=== PATIENT | female | born 1985 | race Caucasian/White ===

== ENCOUNTER 2025-07-14 12:26 | Day surgery (SDC) | payer MEDICAID ==
[~2025-07-14] VITALS: Ht 167.6 cm; Wt 67.1 kg
[2025-07-14] VITALS (8 sets, daily range): BP systolic 105–122; BP diastolic 57–80; PULSE 65–86; RESP 12–17; O2SAT 94–100
[2025-07-14] MEDS: ceFAZolin 2gm/dext,iso 50mL 50 ML IV ONE (05:30)
[~2025-07-14 12:26] MED LIST: APRE30TA5 PO; BUPR1FIL20 SL; DIPH25CA83 PO; FAMO20TA10 PO; FOLI1TAB27 PO; LEVO500C3 PO; LEVO75TA7 PO; PREN1TAB23 PO
[2025-07-14] MEDS: ringers solution, lacted 1,000 ML IV SCH (14:04)
[2025-07-14] MEDS: INDOCYANINE GREEN 25 MG/10 ML VIAL IV ONE (14:05)
[2025-07-14 14:32] LABS: MEAN PLATELET VOLUME 10.1 FL (7.4-10.4); PRE OP HEMATOCRIT 46.8 % (35.0-45.0); PRE OP HEMOGLOBIN 16.2 g/dL (12.0-16.0); PRE OP PLATELET COUNT 108 X10'3 (140-440); PRE OP WHITE BLOOD COUNT 6.0 10'3 (4.8-10.8); RED CELL DISTRIBUTION WIDTH 14.4 % (11.5-14.5)
[2025-07-14 14:44] LABS: HCG SERUM QL NEGATIVE
[2025-07-14 14:46] LABS: CREATININE 0.63 MG/DL (0.40-0.90); PRE OP ANION GAP 8 (8-16); PRE OP GLUCOSE 113 MG/DL (70-104); PRE OP SODIUM 141 MMOL/L (135-145); TOTAL CARBON DIOXIDE 27.3 MMOL/L (24-32); eCRCL 109 ML/MIN; eGFR > 90 ML/MIN
[2025-07-14 15:21] LABS: PRE OP POTASSIUM 4.8 MMOL/L (3.4-5.1)
[2025-07-14 15:22] LABS: PRE OP ALT 80 U/L (30-65); PRE OP AST 155 U/L (10-37)
[2025-07-14 15:23] LABS: PRE OP BILIRUB, TOTAL 2.8 MG/DL (0.0-1.0)
[2025-07-14] MEDS ORDERED: labetalol 20mg/4ml (5mg/ml) syringe IV PRN (15:25)
[2025-07-14] MEDS ORDERED: hydrALAZINE 20mg/ml inj. IV PRN (15:25)
[2025-07-14] MEDS ORDERED: fentaNYL/PF 50MCG/1 ML 2ML syringe IV PRN ×2 (15:25)
[2025-07-14] MEDS ORDERED: morphine 4 MG/ML inj SYRINge IV PRN (15:25)
[2025-07-14] MEDS ORDERED: ondansetron/PF 4mg/2ml inj IV PRN (15:25)
[2025-07-14] MEDS ORDERED: ringers solution, lacted 1,000 ML IV SCH (15:25)
[2025-07-14] MEDS ORDERED: BUPIVAcaine 2.5mg/ml inj 50ml vial (contains preservative) ONE (16:11)
[2025-07-14] MEDS ORDERED: LIDOcaine 1% (10mg/ml)w/preservative inj. 20ml MDV ONE (16:12)
[2025-07-14] MEDS: midazolam 1 mg/ML 2ml injection IV PRN (16:28)
[2025-07-14] MEDS ORDERED: rocuronium 10mg/ml inj IV ONE (16:31)
[2025-07-14] MEDS ORDERED: propofol inj 20 ML IV ONE (16:31)
[2025-07-14] MEDS ORDERED: LIDOcaine 2% (20mg/ml) 5ml vial ONE (16:31)
[2025-07-14] MEDS ORDERED: ondansetron/PF 4mg/2ml inj ONE (16:31)
[2025-07-14] MEDS ORDERED: morphine 10mg/ml inj. ONE ×2 (16:32→17:04)
[2025-07-14] MEDS ORDERED: dexamethasone 4mg/ml inj ONE (16:35)
[2025-07-14] MEDS ORDERED: dexmedetomidine 200mcg/2ml inj. IV ONE (16:35)
[2025-07-14] MEDS ORDERED: oxyCODONE/APAP 5-325mg tablet PO PRN (18:00)
--- NOTE | 2025-07-14 18:07 | OPERATIVE REPORT ---
Operative Report Providers to CC CC: BAYRON DUFFY MD ~ Date of Procedure: Jul 14, 2025 Pre-Operative Diagnosis: Symptomatic cholelithiasis Post-Operative Diagnosis SAME as PRE-Op Procedure Performed Robotic assisted, laparoscopic cholecystectomy Surgeon: Bayron Duffy MD FACS Classified Copy Control Clerk None Anesthesiologist: Amanuel Curry Type of Anesthesia: General Findings: Fatty liver with liver enlargement Distended gallbladder Clear visualization of cystic duct and critical view of safety confirmed using fluorescent cholangiography Wound class II Complications None Prosthetics\Implants used: None Estimated Blood Loss: 20 cc Specimen Removed: Gallbladder Description of Procedure: Patient was brought to the operating room and identified by the nursing staff and the attending physician. Patient was placed supine and general anesthesia was induced. A supraumbilical, midline incision was made, long enough to accommodate a 12 mm Jordan port. Jordan technique was used to gain entry into the abdomen. Stay sutures were placed in the Jordan port anchored to the fascia. Abdomen was insufflated without incident. Laparoscope was inserted and the abdomen surveyed. Secondary, 8.5 mm robotic trochars were placed in the left upper quadrant and right lateral abdomen. Robotic arm was docked to the patient. Robotic instruments were guided intra- abdominally under laparoscopic visualization. Gallbladder was readily identified. It was fairly distended. The liver did not appear cirrhotic as per her history, however, it did appear to have significant fatty liver disease and was quite enlarged. Fundus of the gallbladder was grasped and retracted over the dome of the liver. Infundibulum was retracted towards the right lower quadrant. Firefly technology was used to obtain a fluorescent cholangiogram and visualize the pertinent anatomy. Cystic duct was clearly visualized. Peritoneum overlying the triangle was incised with hook electrocautery. This allowed for circumferential dissection of the cystic duct and artery. Critical view of safety was obtained. Duct and artery were then clipped with hemo-lock clips and both structures divided. Small amount of bleeding times 20 cc occurred from the wall of the gallbladder. Small rent in a surface vein led to the bleeding which ultimately stopped once the cystic artery was ligated. Gallbladder was retracted laterally and dissected out of the gallbladder fossa. Gallbladder was set aside and fluorescent cholangiogram of the gallbladder fossa was used to confirm no evidence of bile leak. Gallbladder was placed in a laparoscopic retrieval bag. Secondary trochars were removed and the abdomen allowed to deflate. Jordan port was removed with the specimen in its retrieval bag. Fascia at the umbilical port site was closed with 0 Vicryl sutures. Skin was closed with 4-0 Monocryl sutures in a subcuticular fashion About 40 cc of local anesthetic was used during the case. Sterile dressings were applied. Patient was awakened and taken to the postanesthesia care unit in stable condition. Counts repoted as correct: Yes BAYRON DUFFY MD Jul 14, 2025 18:07
== END 2025-07-14 19:10 | disposition home or self-care (01) ==
LOC: PAS 12:26
PROVIDERS: ATTEND Surgery
DX: K80.10 Calculus of gallbladder with chronic cholecystitis without obstruction (principal); K76.0 Fatty (change of) liver, not elsewhere classified; K82.8 Other specified diseases of gallbladder; E03.9 Hypothyroidism, unspecified; G43.909 Migraine, unspecified, not intractable, without status migrainosus; Z79.890 Hormone replacement therapy; Z79.899 Other long term (current) drug therapy; Z96.643 Presence of artificial hip joint, bilateral; Z98.890 Other specified postprocedural states; Z88.8 Allergy status to other drugs, medicaments and biological substances
CPT/HCPCS: 36415; 47563; 80053; 84703; 85025; J1100; J2003; J2250; J2274; J2405; J2704; J3490; J7030; J7120; S2900; Z7506; Z7508; Z7512; A4215; A4615; A4618; A7000